=== PATIENT | female | born 1930 | race Caucasian/White ===

== ENCOUNTER 2016-09-07 20:57 | Emergency (ER) | payer BC ==
[2016-09-07 21:02] VITALS: TEMP 97.7
[2016-09-07 21:43] VITALS: RESP 18
--- NOTE | 2016-09-07 22:01 | EDPHY ---
HPI/HX/ROS/PE/MDM Narrative: Chief complaint: High blood pressure HPI: 86-year-old female with past medical history of hypertension. She had an episode last month where she noted that her blood pressure medication dosage had gotten mixed up and she has been taking 20 mg twice a day. She has since gone back to her 10 mg twice a day. She and her partner have been checking her blood pressure daily and noted a couple days where he has been high. Last Saturday was 200 systolic. She has been suffering from upper respiratory cold type symptoms with a nonproductive cough. No fevers or chills. No chest pain shortness of breath. She has not had any headache. No nausea or vomiting. No urinary symptoms. She otherwise feels in her normal state of health. Today that her blood pressure was noted to be 200 over 100. They called their physician's office and instructed to increase the dose of amlodipine and recheck. They did this to her blood pressure remained high so they are now presenting for evaluation. She otherwise feels well and is without any other complaint. ROS: 10 point Review of Systems is negative except as noted in the HPI. Physical exam: Gen: Awake, Alert, No Distress HEENT: Nose: no rhinorrhea Eyes: PERRLA, EOMI Mouth: Moist mucosa Neck: Supple, no JVD Chest: nontender, lungs clear to auscultation Heart: S1, S2 normal, no murmur Abd: Soft, non-tender, no guarding Back: no CVA tenderness, no midline tenderness Ext: no edema, non-tender Skin: no rash Neuro: CN II-XII intact, Sensation grossly intact, Strength 5/5 in bilateral upper and lower extremities ED Course: Patient with episode of high blood pressure home. Right now her blood pressure is 159/96. She has a heart rate of 78, respiratory saturations are 96 with a respiratory rate of 12. She is without any complaint at this time. There is no symptoms to suggest end-organ damage or malignant hypertension at this time. Will discharged home with follow-up with her primary care physician next week. Lungs are clear on exam. She does have a cough which she is afebrile and does not have any symptoms to suggest a pneumonia at this time. She would like to go home and agrees with the plan. General Time Seen by Provider: 09/07/16 21:37 Initial Vital Signs: Initial Vital Signs Temperature (C) 36.5 C 09/07/16 20:58 Heart Rate 73 09/07/16 20:58 Respiratory Rate 16 09/07/16 20:58 Blood Pressure 189/102 H 09/07/16 20:58 O2 Sat (%) 92 09/07/16 20:58 O2 Delivery Mode Room Air Allergies/Adverse Reactions: Iodinated Contrast Media - Oral and [IV Dye, Iodine Containing] Allergy (Severe , Verified 01/01/10 05:47) WATERY EYES, NOSE Home Medications: Medication Instructions Recorded Aspirin EC [Aspirin EC 81 mg (*)] 81 mg PO HS 11/29/15 Atorvastatin Calcium [Lipitor 10 10 mg PO HS 11/29/15 mg (*)] Benzonatate [Tessalon Pearles] 100 mg PO TID PRN 11/29/15 Gabapentin [Neurontin 100 MG (*)] 200 mg PO HS 11/29/15 Guaifenesin/Codeine Phosphate 5 ml PO Q4 PRN 11/29/15 [Guaifen-Codeine 100-10 mg/5 ml] Herbals/Supplements -Info Only 1 ea PO DAILY 11/29/15 Lisinopril [Zestril 10 mg (*)] 10 mg PO DAILY 11/29/15 Oseltamivir Phosphate [Tamiflu 30 mg PO BIDMEAL #6 dose 12/02/15 Oral Suspension] Departure - Departure Disposition: Home, Routine, Self-Care Clinical Impression: Viral upper respiratory infection, Hypertension Condition: Good Instructions: Hypertension (ED), Viral Syndrome (ED) Additional Instructions: Follow up with your primary care doctor in next week. Return to the emergency department for worsening cough, shortness of breath, headache, nausea, vomiting, chest pain, or uncontrolled high blood pressure. Take your usual medications as prescribed. Referrals: Bo Decker MD [Primary Care Provider] - As per Instructions
[2016-09-07 22:19] VITALS: BP 159/97; PULSE 78; O2SAT 96
== END 2016-09-07 22:16 | disposition home or self-care (01) ==
DX: I10 Essential (primary) hypertension (principal); J06.9 Acute upper respiratory infection, unspecified; Z79.82 Long term (current) use of aspirin

== ENCOUNTER 2016-10-02 04:49 | Emergency (ER) | payer BC ==
--- NOTE | 2016-10-02 04:58 | EDPHY ---
HPI/HX/ROS/PE/MDM Narrative: Chief complaint: Syncope HPI: 86-year-old female states that she took a laxative just prior to going to bed. She woke up this morning with the need to go to the bathroom. She went and had a large bowel movement. Immediately after that she felt lightheaded, was unable to stand up. She slid to the ground. She did not hit her head. No loss of consciousness. She did feel very weak at that time. Did not have any chest pain. No palpitations. Has not been recently on well. No fevers or chills. No increasing urination or burning with urination. Her partner called 911. Currently she is complaining of feeling a bit thirsty, otherwise no complaints. ROS: 10 point Review of Systems is negative except as noted in the HPI. Physical exam: Gen: Awake, Alert, No Distress HEENT: Nose: no rhinorrhea Eyes: PERRLA, EOMI Mouth: Moist mucosa Neck: Supple, no JVD Chest: nontender, lungs clear to auscultation Heart: S1, S2 normal, no murmur Abd: Soft, non-tender, no guarding Back: no CVA tenderness, no midline tenderness Ext: no edema, non-tender Skin: no rash Neuro: CN II-XII intact, Sensation grossly intact, Strength 5/5 in bilateral upper and lower extremities ED Course: 86-year-old female that I actually saw earlier this month with hypertension. Tonight she had a near syncopal episode immediately after having a large bowel motion. She did not have any pain. Did not have a complete loss of consciousness. No shortness of breath. She is feeling improved now. Will check ECG, labs, encourage oral hydration and reassess. EC Sinus Rhythm, normal intervals. Normal axis. No ST or T wave changes. Impression: normal ECG. CBC is normal Metabolic panel is normal. Troponin is normal. I had an extensive discussion about the likely cause of her syncope being vasovagal. Given that this occurred after had she had a very large bowel movement on the toilet I think that this is likely. She has not have any findings suggestive of a rib media. Her ECG is normal. Troponin is normal. She has otherwise well-appearing. She does not want to stay in hospital for further evaluation. Plan will be for discharge with follow-up with her primary care physician - Data Points Laboratory Results: Laboratory Results 10/02/16 05:00 10/02/16 05:45 10/02/16 10/02/16 05:45 05:00 WBC 6.33 10^3/uL (3.80-9.50) RBC 4.90 10^6/uL (4.18-5.33) Hgb 14.9 g/dL (12.6-16.3) Hct 44.1 % (38.0-47.0) MCV 90.0 fL (81.5-99.8) MCH 30.4 pg (27.9-34.1) MCHC 33.8 g/dL (32.4-36.7) RDW 13.7 % (11.5-15.2) Plt Count 204 10^3/uL (150-400) MPV 8.8 fL (8.7-11.7) Neut % (Auto) 62.9 % (39.3-74.2) Lymph % (Auto) 26.7 % (15.0-45.0) [place] % (Auto) 6.2 % (4.5-13.0) Eos % (Auto) 2.8 % (0.6-7.6) Baso % (Auto) 0.5 % (0.3-1.7) Nucleat RBC Rel Count 0.0 % (0.0-0.2) Absolute Neuts (auto) 3.98 10^3/uL (1.70-6.50) Absolute Lymphs (auto) 1.69 10^3/uL (1.00-3.00) Absolute Monos (auto) 0.39 10^3/uL (0.30-0.80) Absolute Eos (auto) 0.18 10^3/uL (0.03-0.40) Absolute Basos (auto) 0.03 10^3/uL (0.02-0.10) Absolute Nucleated RBC 0.00 10^3/uL (0-0.01) Immature Gran % 0.9 % (0.0-1.1) Immature Gran # 0.06 10^3/uL (0.00-0.10) Sodium 137 mEq/L REJ (134-144) Potassium 4.0 mEq/L REJ (3.5-5.2) Chloride 103 mEq/L REJ (97-110) Carbon Dioxide 25 mEq/l REJ (22-31) Anion Gap 9 mEq/L REJ (8-16) BUN 13 mg/dL REJ (7-23) Creatinine 0.7 mg/dL REJ (0.6-1.0) Estimated GFR > 60 REJ Glucose 91 mg/dL REJ (70-100) Calcium 9.1 mg/dL REJ (8.5-10.4) Troponin I < 0.012 ng/mL REJ (0-0.034) Specimen Hemolysis REJ Medications Given: Discontinued Medications Sodium Chloride (Ns) 500 mls @ 0 mls/hr IV ONCE ONE PRN Reason: Wide Open Stop: 10/02/16 05:01 Last Admin: 10/02/16 05:14 Dose: 500 mls General Initial Vital Signs: Initial Vital Signs Heart Rate 68 10/02/16 04:53 Respiratory Rate 18 10/02/16 04:53 Blood Pressure 164/84 H 10/02/16 04:53 O2 Sat (%) 96 10/02/16 04:53 O2 Delivery Mode Room Air O2 (L/minute) 36.4 Allergies/Adverse Reactions: Iodinated Contrast Media - Oral and [IV Dye, Iodine Containing] Allergy (Severe , Verified 01/01/10 05:47) WATERY EYES, NOSE Home Medications: Medication Instructions Recorded Aspirin EC [Aspirin EC 81 mg (*)] 81 mg PO HS 11/29/15 Atorvastatin Calcium [Lipitor 10 10 mg PO HS 11/29/15 mg (*)] Benzonatate [Tessalon Pearles] 100 mg PO TID PRN 11/29/15 Gabapentin [Neurontin 100 MG (*)] 200 mg PO HS 11/29/15 Guaifenesin/Codeine Phosphate 5 ml PO Q4 PRN 11/29/15 [Guaifen-Codeine 100-10 mg/5 ml] Herbals/Supplements -Info Only 1 ea PO DAILY 11/29/15 Lisinopril [Zestril 10 mg (*)] 10 mg PO DAILY 11/29/15 Oseltamivir Phosphate [Tamiflu 30 mg PO BIDMEAL #6 dose 12/02/15 Oral Suspension] Departure - Departure Disposition: Home, Routine, Self-Care Clinical Impression: Vasovagal episode, Vasovagal near-syncope Condition: Good Instructions: Near Syncope (ED) Additional Instructions: Make sure to drink plenty of fluids. Avoid taking laxative prior to going to bed. Follow up with your primary care physician in 2-3 days for re-evaluation. Return to the emergency department for increasing fainting, chest pain, palpitations, shortness of breath, or any other concerns. Referrals: Bo Decker MD [Primary Care Provider] - As per Instructions
[2016-10-02] MEDS ORDERED: NS 500 ML IV ONE (05:00)
--- NOTE | 2016-10-02 05:10 | CPEKG ---
Heart Rate: 66 RR Interval: 909 P-R Interval: 216 QRSD Interval: 84 QT Interval: 400 QTC Interval: 420 P [place]: 71 QRS [place]: 72 T Wave [place]: 72 EKG Severity - NORMAL ECG - EKG Impression: SINUS RHYTHM Electronically Signed By: Max Clarke 02-Oct-2016 07:08:14
[2016-10-02 05:15] LABS: % IMMATURE GRANULYOCYTES 0.9 % (0.0-1.1); ABSOLUTE IMMATURE GRANULOCYTES 0.06 10^3/uL (0.00-0.10); ADD DIFF? NO; ADD MORPH? NO; ADD SCAN? NO; ATYPICAL LYMPHOCYTE FLAG 0 (0-99); FRAGMENT RBC FLAG 0 (0-99); HEMATOCRIT 44.1 % (38.0-47.0); HEMOGLOBIN 14.9 g/dL (12.6-16.3); LEFT SHIFT FLG 0 (0-99); LIPEMIA HEMOLYSIS FLAG 90 (0-99); MEAN CELL HEMOGLOBIN 30.4 pg (27.9-34.1); MEAN CELL HEMOGLOBIN CONCENTR. 33.8 g/dL (32.4-36.7); MEAN PLATELET VOLUME 8.8 fL (8.7-11.7); PLATELET CLUMPS FLAG 0 (0-99); PLATELET COUNT 204 10^3/uL (150-400); RED CELL DISTRIBUTION WIDTH 13.7 % (11.5-15.2)
[2016-10-02 05:58] VITALS: O2SAT 97
[2016-10-02 06:11] LABS: ANION GAP 9 mEq/L (8-16); CALCIUM 9.1 mg/dL (8.5-10.4); CARBON DIOXIDE 25 mEq/l (22-31); CHLORIDE 103 mEq/L (97-110); CREATININE 0.7 mg/dL (0.6-1.0); GLOMERULAR FILTRATION RATE > 60; GLUCOSE 91 mg/dL (70-100); SODIUM 137 mEq/L (134-144)
[2016-10-02 06:22] LABS: TROPONIN I < 0.012 ng/mL (0-0.034)
[2016-10-02 07:12] VITALS: BP 167/97; PULSE 76; RESP 16; TEMP 97.5
== END 2016-10-02 07:12 | disposition home or self-care (01) ==
LOC: EDUNIT#
DX: R55 Syncope and collapse (principal); Z79.82 Long term (current) use of aspirin

== ENCOUNTER 2016-10-03 12:43 | Inpatient (IN) | payer OTHER, BC ==
--- NOTE | 2016-10-03 12:52 | EDPHY ---
H & P Stated Complaint: Abd pain since last corky;sent by PCP for eval bowel problem; bloody stool Time Seen by Provider: 10/03/16 12:46 HPI/ROS: CHIEF COMPLAINT: Abdominal pain, bloody bowel movement HISTORY OF PRESENT ILLNESS: The patient presents to the ED with complaints of acute abdominal pain, back pain and a bloody bowel movement. The patient was seen in the ED 2 days ago after she had a syncopal episode while at home after using a laxative. The patient developed pain and a bloody bowel movement earlier today. She was seen at her primary care provider's office and sent to the ED for further evaluation. The patient reports a contrast to IV iodine. The patient denies a prior history of diverticulitis or significant bowel disease. The patient reports her pain is moderate in nature. It is located primarily in the left lower quadrant. REVIEW OF SYSTEMS: A comprehensive 10 point review of systems is otherwise negative aside from elements mentioned in the history of present illness. Source: Patient Exam Limitations: No limitations - Personal History Current Tetanus Diphtheria and Acellular Pertussis (TDAP): Yes Tetanus Vaccine Date: unknown - Medical/Surgical History Hx Asthma: No Hx Chronic Respiratory Disease: No Hx Diabetes: No Hx Cardiac Disease: Yes Hx Renal Disease: No Hx Cirrhosis: No Hx Alcoholism: No Hx HIV/AIDS: No Hx Splenectomy or Spleen Trauma: No Other PMH: PMHx: HTN, CAD, pericarditis. PSHx: cardiac stent, bilateral hip replacement - Social History Smoking Status: Never smoked - Physical Exam Exam: General Appearance: Alert, no distress Eyes: Pupils equal and round no pallor or injection ENT, Mouth: Mucous membranes moist Respiratory: There are no retractions, lungs are clear to auscultation Cardiovascular: Regular rate and rhythm Gastrointestinal: Tenderness to palpation in the left lower quadrant, normal bowel sounds Neurological: A&O, normal motor function, normal sensory exam, normal cranial nerves Skin: Warm and dry, no rashes Musculoskeletal: Neck is supple nontender Extremities: symmetrical, full range of motion Constitutional: Initial Vital Signs Temperature (C) 36.8 C 10/03/16 12:45 Heart Rate 86 10/03/16 12:45 Respiratory Rate 18 10/03/16 12:45 Blood Pressure 178/103 H 10/03/16 12:45 O2 Sat (%) 97 10/03/16 12:45 Allergies/Adverse Reactions: Iodinated Contrast Media - Oral and [IV Dye, Iodine Containing] Allergy (Severe , Verified 10/03/16 12:47) WATERY EYES, NOSE Home Medications: Medication Instructions Recorded Aspirin EC [Aspirin EC 81 mg (*)] 81 mg PO HS 11/29/15 Atorvastatin Calcium [Lipitor 10 10 mg PO HS 11/29/15 mg (*)] Benzonatate [Tessalon Pearles] 100 mg PO TID PRN 11/29/15 Gabapentin [Neurontin 100 MG (*)] 200 mg PO HS 11/29/15 Guaifenesin/Codeine Phosphate 5 ml PO Q4 PRN 11/29/15 [Guaifen-Codeine 100-10 mg/5 ml] Herbals/Supplements -Info Only 1 ea PO DAILY 11/29/15 Lisinopril [Zestril 10 mg (*)] 10 mg PO DAILY 11/29/15 Oseltamivir Phosphate [Tamiflu 30 mg PO BIDMEAL #6 dose 12/02/15 Oral Suspension] Medical Decision Making - Diagnostics Imaging: CT Scan of the abdomen and pelvis without contrast Indication: Left flank pain. Technique: Multidetector helical CT imaging was performed from the kidneys to the urinary bladder without contrast. Dose reduction techniques were utilized. Comparison: CT abdomen and pelvis dated December 19, 2006 and pelvic ultrasound dated November 08, 2008. Findings: Minimal stranding and edema are present along the minimally thickened descending colon. A few scattered diverticula are present throughout the descending and sigmoid colon. Trace free fluid resides in the low pelvis. No pneumoperitoneum, abscess, lymphadenopathy or mass. The well circumscribed unilocular right ovarian cyst has increased in size since 2006 and 2008. The cyst now measures 10 x 7 x 6.5 cm (previously 8.0 x 6.6 x 5.5 cm). A new small cyst in the left ovary measuring 3.5 x 3.0 x 3.0 cm has developed since 2006. No discernible mass or internal septations on the noncontrast imaging. Numerous well circumscribed fluid attenuation cysts scattered throughout the liver are unchanged. The spleen, pancreas, gallbladder, adrenal glands, and kidneys are normal. No nephrolithiasis or hydroureteronephrosis. Urinary bladder is normal. Anteverted uterus contains a large round heterogeneous mass, presumably representing a uterine leiomyoma measuring 6.5 x 6.0 cm (previously 6.0 x 5.5 cm). No bone lesions. A subtle old compression deformity involving superior endplate of L1 is new since 2006. The abdominal aorta is normal caliber with extensive calcified mural plaque. Impression: 1. Minimal colitis, possibly diverticulitis, of the descending colon. No evidence of perforation or abscess. 2. Increasing in size bilateral ovarian cysts. The largest on the right measures 10 cm. Recommend follow up with VASCULAR SONOGRAPHER. 3. Increased size of intrauterine leiomyoma. 4. Old minimal compression deformity at L1. ED Course/Re-evaluation: The patient presents to the ED with complaints of acute abdominal pain and bloody diarrhea. The patient is noted to be quite tender in her left lower quadrant. She is hemodynamically stable. She was taken for a stat CT scan of the abdomen pelvis which demonstrates changes consistent with diverticulitis in the descending colon. The patient had an IV established. She received 2 L of normal saline. She received IV narcotic pain medications. She received IV Levaquin and Flagyl. The patient had multiple examinations in the ED by myself. At 3:00 p.m. she continues to have fairly significant tenderness.. Given her age and ongoing tenderness I do feel she should be admitted to the hospital for observation this evening. Consultation is made with Dr. Espana at 3:00 p.m.. He will admit the patient to a medical-surgical bed this evening. The patient is noted to have mild hyponatremia on her initial labs this is likely secondary to hypovolemia as she appears dehydrated. Differential Diagnosis: Differential diagnosis considered includes diverticulitis, ischemic colitis, pancreatitis, bowel obstruction, perforation - Data Points Laboratory Results: Laboratory Results 10/03/16 13:15 10/03/16 13:15 10/03/16 10/03/16 13:15 13:00 WBC 6.43 10^3/uL (3.80-9.50) RBC 4.89 10^6/uL (4.18-5.33) Hgb 15.2 g/dL (12.6-16.3) Hct 42.8 % (38.0-47.0) MCV 87.5 fL (81.5-99.8) MCH 31.1 pg (27.9-34.1) MCHC 35.5 g/dL (32.4-36.7) RDW 13.3 % (11.5-15.2) Plt Count 196 10^3/uL (150-400) MPV 8.5 L fL (8.7-11.7) Neut % (Auto) 79.0 H % (39.3-74.2) Lymph % (Auto) 14.0 L % (15.0-45.0) [place] % (Auto) 5.8 % (4.5-13.0) Eos % (Auto) 0.6 % (0.6-7.6) Baso % (Auto) 0.3 % (0.3-1.7) Nucleat RBC Rel Count 0.0 % (0.0-0.2) Absolute Neuts (auto) 5.08 10^3/uL (1.70-6.50) Absolute Lymphs (auto) 0.90 L 10^3/uL (1.00-3.00) Absolute Monos (auto) 0.37 10^3/uL (0.30-0.80) Absolute Eos (auto) 0.04 10^3/uL (0.03-0.40) Absolute Basos (auto) 0.02 10^3/uL (0.02-0.10) Absolute Nucleated RBC 0.00 10^3/uL (0-0.01) Immature Gran % 0.3 % (0.0-1.1) Immature Gran # 0.02 10^3/uL (0.00-0.10) Sodium 129 L mEq/L (134-144) Potassium 4.1 mEq/L (3.5-5.2) Chloride 95 L mEq/L (97-110) Carbon Dioxide 24 mEq/l (22-31) Anion Gap 10 mEq/L (8-16) BUN 9 mg/dL (7-23) Creatinine 0.6 mg/dL (0.6-1.0) Estimated GFR > 60 Glucose 101 H mg/dL (70-100) Calcium 8.9 mg/dL (8.5-10.4) Total Bilirubin 1.3 mg/dL (0.1-1.4) Conjugated Bilirubin 0.3 mg/dL (0.0-0.5) Unconjugated Bilirubin 1.0 mg/dL (0.0-1.1) AST 24 IU/L (14-46) ALT 31 IU/L (9-52) Alkaline Phosphatase 44 IU/L (38-126) Total Protein 6.8 g/dL (6.3-8.2) Albumin 3.7 g/dL (3.5-5.0) Lipase 73.0 IU/L (23-300) Urine Color PALE YELLOW Urine Appearance CLEAR Urine pH 7.0 (5.0-7.5) Ur Specific [place] 1.005 (1.002-1.030) Urine Protein NEGATIVE (NEGATIVE) Urine Ketones NEGATIVE (NEGATIVE) Urine Blood 1+ H (NEGATIVE) Urine Nitrate NEGATIVE (NEGATIVE) Urine Bilirubin NEGATIVE (NEGATIVE) Urine Urobilinogen NEGATIVE EU (0.2-1.0) Ur Leukocyte Esterase NEGATIVE (NEGATIVE) Urine RBC 1-3 /hpf (0-3) Urine WBC 1-3 /hpf (0-3) Ur Epithelial Cells NONE SEEN /lpf (NONE-1+) Ur Culture Indicated? NOT INDICATED (NI) Urine Glucose NEGATIVE (NEGATIVE) Departure - Departure Disposition: [facility] Clinical Impression: Diverticulitis Condition: Good
[2016-10-03 13:25] LABS: % IMMATURE GRANULYOCYTES 0.3 % (0.0-1.1); ABSOLUTE IMMATURE GRANULOCYTES 0.02 10^3/uL (0.00-0.10); ADD DIFF? NO; ADD MORPH? NO; ADD SCAN? NO; ATYPICAL LYMPHOCYTE FLAG 0 (0-99); FRAGMENT RBC FLAG 0 (0-99); HEMATOCRIT 42.8 % (38.0-47.0); HEMOGLOBIN 15.2 g/dL (12.6-16.3); LEFT SHIFT FLG 0 (0-99); LIPEMIA HEMOLYSIS FLAG 90 (0-99); MEAN CELL HEMOGLOBIN 31.1 pg (27.9-34.1); MEAN CELL HEMOGLOBIN CONCENTR. 35.5 g/dL (32.4-36.7); MEAN CELL VOLUME 87.5 fL (81.5-99.8); MEAN PLATELET VOLUME 8.5 fL (8.7-11.7); PLATELET CLUMPS FLAG 0 (0-99); PLATELET COUNT 196 10^3/uL (150-400); RED BLOOD CELL COUNT 4.89 10^6/uL (4.18-5.33); RED CELL DISTRIBUTION WIDTH 13.3 % (11.5-15.2)
[2016-10-03 13:50] LABS: ALANINE AMINOTRANSFERASE 31 IU/L (9-52); ALBUMIN 3.7 g/dL (3.5-5.0); ALKALINE PHOSPHATASE 44 IU/L (38-126); ANION GAP 10 mEq/L (8-16); ASPARTATE AMINOTRANSFERASE 24 IU/L (14-46); BILIRUBIN,TOTAL 1.3 mg/dL (0.1-1.4); BILIRUBIN-CONJUGATED 0.3 mg/dL (0.0-0.5); CALCIUM 8.9 mg/dL (8.5-10.4); CARBON DIOXIDE 24 mEq/l (22-31); CHLORIDE 95 mEq/L (97-110); CREATININE 0.6 mg/dL (0.6-1.0); GLOMERULAR FILTRATION RATE > 60; GLUCOSE 101 mg/dL (70-100); POTASSIUM 4.1 mEq/L (3.5-5.2); SODIUM 129 mEq/L (134-144); TOTAL PROTEIN 6.8 g/dL (6.3-8.2)
[2016-10-03 14:30] LABS: COLOR PALE YELLOW; LEUKOCYTE ESTERASE,URINE NEGATIVE (NEGATIVE); NITRITE,URINE NEGATIVE (NEGATIVE)
--- NOTE | 2016-10-03 14:39 | CT ---
CT Scan of the abdomen and pelvis without contrast Indication: Left flank pain. Technique: Multidetector helical CT imaging was performed from the kidneys to the urinary bladder wi thout contrast. Dose reduction techniques were utilized. Comparison: CT abdomen and pelvis dated December 19, 2006 and pelvic ultrasound dated November 08, 2008. Findings: Minimal stranding and edema are present along the minimally thickened descending colon. A f ew scattered diverticula are present throughout the descending and sigmoid colon. Trace free fluid re sides in the low pelvis. No pneumoperitoneum, abscess, lymphadenopathy or mass. The well circumscribed unilocular right ovarian cyst has increased in size since 2006 and 2008. The c yst now measures 10 x 7 x 6.5 cm (previously 8.0 x 6.6 x 5.5 cm). A new small cyst in the left ovary measuring 3.5 x 3.0 x 3.0 cm has developed since 2006. No discernible mass or internal septations on the noncontrast imaging. Numerous well circumscribed fluid attenuation cysts scattered throughout the liver are unchanged. The spleen, pancreas, gallbladder, adrenal glands, and kidneys are normal. No nephrolithiasis or hydrour eteronephrosis. Urinary bladder is normal. Anteverted uterus contains a large round heterogeneous mass, presumably representing a uterine leiomy tee measuring 6.5 x 6.0 cm (previously 6.0 x 5.5 cm). No bone lesions. A subtle old compression deformity involving superior endplate of L1 is new since 21 03. The abdominal aorta is normal caliber with extensive calcified mural plaque. Impression: 1. Minimal colitis, possibly diverticulitis, of the descending colon. No evidence of perforation or a bscess. 2. Increasing in size bilateral ovarian cysts. The largest on the right measures 10 cm. Recommend fol low up with MANAGER MBA. 3. Increased size of intrauterine leiomyoma. 4. Old minimal compression deformity at L1. Comment: Case was discussed with Dr. Chris Seaman. Attention: This CT examination is specifically designed to evaluate patients who are clinically susp ected of having acute obstructive uropathy. This examination does not use radiographic contrast, and as such, provides only a limited evaluation of the abdomen, pelvis and retroperitoneum. If there i s further clinical suspicion for pathological conditions other than obstructive uropathy, a complete CT evaluation of the abdomen and pelvis utilizing intravenous, oral, and rectal contrast should be co nsidered.
[2016-10-03] MEDS ORDERED: NS 1,000 ML IV ONE ×2 (14:57)
[2016-10-03] MEDS ORDERED: HYDROmorphONE/DILAUDID 1 MG/ML SYR IVP ONE (14:57)
[2016-10-03] MEDS ORDERED: PROMETHAZINE HCL 25 MG TAB PO PRN (15:19)
[2016-10-03] MEDS ORDERED: ACETAMINOPHEN 325 MG TAB PO PRN (15:19)
[2016-10-03] MEDS ORDERED: PROMETHAZINE HCL 25 MG/ML INJ IVP PRN (15:19)
[2016-10-03] MEDS ORDERED: ONDANSETRON DISINTEGRATING 4 MG TAB PO PRN (15:19)
--- NOTE | 2016-10-03 15:50 | PDGENHP ---
History and Physical - Chief Complaint Acute abdominal pain - History of Present Illness PCP: Dr. Allen Casing Tier: Dr. Muse HPI: 86-year-old female presenting with acute abdominal pain characterized as moderate, located in the right hemidiaphragm and back with associated hematochezia and onset of symptoms on the day of this presentation. Duration has been persistent thereafter and have been partially alleviated by IV Dilaudid received in the emergency department. The patient reports that the symptoms were precipitated by nausea and vomiting on the day prior to this presentation. She also experienced a syncopal episode after a very large bowel movement which was precipitated by laxative use. The patient denies ever experiencing these kind of symptoms before. She reports that she has otherwise been attempting to take all of her home medications but some of them may have been vomited up on the evening prior to this presentation. History Information - Allergies/Home Medication List Allergies/Adverse Reactions: Iodinated Contrast Media - Oral and [IV Dye, Iodine Containing] Allergy (Severe , Verified 10/03/16 12:47) WATERY EYES, NOSE Home Medications: Aspirin EC [Aspirin EC 81 mg (*)] 81 mg PO HS 11/29/15 [Last Taken 10/02/16] Atorvastatin Calcium [Lipitor 10 mg (*)] 10 mg PO HS 11/29/15 [Last Taken ] Gabapentin [Neurontin 100 MG (*)] 200 mg PO HS 11/29/15 [Last Taken 10/02/16] Herbals/Supplements -Info Only 1 ea PO DAILY 11/29/15 [Last Taken Unknown] Lisinopril [Zestril 10 mg (*)] 10 mg PO BID 11/29/15 [Last Taken 10/03/16] I have personally reviewed and updated: family history, medical history, social history, surgical history - Past Medical History coronary artery disease (Status post cardiac stents in early 1999), hypertension Additional medical history: Pericarditis. 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 - Surgical History Additional surgical history: Bilateral hip surgery, cardiac stents - Family History Additional family history: Reports no recent sick family contacts, parents are both - Social History Smoking Status: Never smoked Alcohol Use: None Drug Use: None Additional social history: Active at baseline, lives with partner Review of Systems ROS: 10pt was reviewed & negative except for what was stated in HPI & below Constitutional: Reports: chills, malaise Gastrointestinal: Reports: vomitting, abdominal pain, nausea, other ( Hematochezia) Physical Exam Temp Pulse Resp BP Pulse Ox 36.9 C 80 16 149/79 H 95 10/03/16 15:31 10/03/16 15:31 10/03/16 15:31 10/03/16 15:31 10/03/16 15:31 Constitutional: appears nourished, uncomfortable, No not in pain, No chronically ill appearing, No obese Eyes: PERRL, anicteric sclera, EOMI Ears, Nose, Mouth, Throat: moist mucous membranes, hearing normal, ears appear normal, no oral mucosal ulcers Cardiovascular: systolic murmur (2/6 systolic murmur at the sternum and apex), No irregularly irregular, No tachycardia, No edema Respiratory: no respiratory distress, no rales or rhonchi, clear to auscultation Gastrointestinal: normoactive bowel sounds, no palpable masses, tenderness ( Right hemidiaphragm), guarding (Voluntary), No distension Skin: warm, normal color, no rashes or abrasions, no fluctuance, no induration, No mottled Neurologic: AAOx3, sensation intact bilaterally, No weakness Psychiatric: interacting appropriately, not anxious, not encephalopathic, thought process linear Lab Data & Imaging Review 10/03/16 13:15 10/03/16 13:15 WBC 6.43 10^3/uL (3.80-9.50) 10/03/16 13:15 RBC 4.89 10^6/uL (4.18-5.33) 10/03/16 13:15 Hgb 15.2 g/dL (12.6-16.3) 10/03/16 13:15 Hct 42.8 % (38.0-47.0) 10/03/16 13:15 MCV 87.5 fL (81.5-99.8) 10/03/16 13:15 MCH 31.1 pg (27.9-34.1) 10/03/16 13:15 MCHC 35.5 g/dL (32.4-36.7) 10/03/16 13:15 RDW 13.3 % (11.5-15.2) 10/03/16 13:15 Plt Count 196 10^3/uL (150-400) 10/03/16 13:15 MPV 8.5 fL (8.7-11.7) L 10/03/16 13:15 Neut % (Auto) 79.0 % (39.3-74.2) H 10/03/16 13:15 Lymph % (Auto) 14.0 % (15.0-45.0) L 10/03/16 13:15 [place] % (Auto) 5.8 % (4.5-13.0) 10/03/16 13:15 Eos % (Auto) 0.6 % (0.6-7.6) 10/03/16 13:15 Baso % (Auto) 0.3 % (0.3-1.7) 10/03/16 13:15 Nucleat RBC Rel Count 0.0 % (0.0-0.2) 10/03/16 13:15 Absolute Neuts (auto) 5.08 10^3/uL (1.70-6.50) 10/03/16 13:15 Absolute Lymphs (auto) 0.90 10^3/uL (1.00-3.00) L 10/03/16 13:15 Absolute Monos (auto) 0.37 10^3/uL (0.30-0.80) 10/03/16 13:15 Absolute Eos (auto) 0.04 10^3/uL (0.03-0.40) 10/03/16 13:15 Absolute Basos (auto) 0.02 10^3/uL (0.02-0.10) 10/03/16 13:15 Absolute Nucleated RBC 0.00 10^3/uL (0-0.01) 10/03/16 13:15 Immature Gran % 0.3 % (0.0-1.1) 10/03/16 13:15 Immature Gran # 0.02 10^3/uL (0.00-0.10) 10/03/16 13:15 Sodium 129 mEq/L (134-144) L 10/03/16 13:15 Potassium 4.1 mEq/L (3.5-5.2) 10/03/16 13:15 Chloride 95 mEq/L (97-110) L 10/03/16 13:15 Carbon Dioxide 24 mEq/l (22-31) 10/03/16 13:15 Anion Gap 10 mEq/L (8-16) 10/03/16 13:15 BUN 9 mg/dL (7-23) 10/03/16 13:15 Creatinine 0.6 mg/dL (0.6-1.0) 10/03/16 13:15 Estimated GFR > 60 10/03/16 13:15 Glucose 101 mg/dL (70-100) H 10/03/16 13:15 Calcium 8.9 mg/dL (8.5-10.4) 10/03/16 13:15 Total Bilirubin 1.3 mg/dL (0.1-1.4) 10/03/16 13:15 Conjugated Bilirubin 0.3 mg/dL (0.0-0.5) 10/03/16 13:15 Unconjugated Bilirubin 1.0 mg/dL (0.0-1.1) 10/03/16 13:15 AST 24 IU/L (14-46) 10/03/16 13:15 ALT 31 IU/L (9-52) 10/03/16 13:15 Alkaline Phosphatase 44 IU/L (38-126) 10/03/16 13:15 Total Protein 6.8 g/dL (6.3-8.2) 10/03/16 13:15 Albumin 3.7 g/dL (3.5-5.0) 10/03/16 13:15 Lipase 73.0 IU/L (23-300) 10/03/16 13:15 Urine Color PALE YELLOW 10/03/16 13:00 Urine Appearance CLEAR 10/03/16 13:00 Urine pH 7.0 (5.0-7.5) 10/03/16 13:00 Ur Specific [place] 1.005 (1.002-1.030) 10/03/16 13:00 Urine Protein NEGATIVE (NEGATIVE) 10/03/16 13:00 Urine Ketones NEGATIVE (NEGATIVE) 10/03/16 13:00 Urine Blood 1+ (NEGATIVE) H 10/03/16 13:00 Urine Nitrate NEGATIVE (NEGATIVE) 10/03/16 13:00 Urine Bilirubin NEGATIVE (NEGATIVE) 10/03/16 13:00 Urine Urobilinogen NEGATIVE EU (0.2-1.0) 10/03/16 13:00 Ur Leukocyte Esterase NEGATIVE (NEGATIVE) 10/03/16 13:00 Urine RBC 1-3 /hpf (0-3) 10/03/16 13:00 Urine WBC 1-3 /hpf (0-3) 10/03/16 13:00 Ur Epithelial Cells NONE SEEN /lpf (NONE-1+) 10/03/16 13:00 Ur Culture Indicated? NOT INDICATED (NI) 10/03/16 13:00 Urine Glucose NEGATIVE (NEGATIVE) 10/03/16 13:00 Visualized and Interpreted EKG results: Yes EKG Interpretation: Positive for: other (Normal sinus rhythm with Q-waves inferiorly) Assessment & Plan Assessment: 78-year-old female presenting with acute abdominal pain secondary to suspected acute diverticulitis Plan: 1. Suspected acute diverticulitis. New problem this provider, further workup indicated. Evidence by CT of the abdomen without IV contrast demonstrating colitis and possible diverticulitis in the descending colon without any associated abscess. Symptoms include abdominal pain, hematochezia, nausea and vomiting. -send stool culture to delineate whether viral versus bacterial if in fact this is actually colitis -discussed with Dr. Seaman, he has reported to me that the patient is receiving IV levofloxacin and IV Flagyl -will continue the patient on IV ciprofloxacin and IV Flagyl given her nausea and vomiting, transition to oral when she is able to tolerate pills reliably -bowel rest with clear liquid diet -continue on IV fluids notably normal saline 150 mL/hour -pain management with oral and IV meds, antiemetics as needed -if patient's symptoms worsen or her severity of illness escalates, we will reimage her abdomen with IV contrast and premedicating with Benadryl and Tylenol given that her iodine allergy in the past did not sound severe and patient was unable to recall the exact reaction 2. Hyponatremia. Chronic, reviewed outside records including 12/02/[address] Garcia which she characterizes patient's hyponatremia secondary to SIADH, Lasix discontinued -monitor serum sodium level while receiving IV normal saline 3. Hypertension. Chronic, continue lisinopril given his systolic blood pressures greater than 170 4. Chronic coronary artery disease. Remote history of cardiac stents, will hold aspirin given her hematochezia 5. Suspected cognitive impairment. Patient's partner reports that the patient has been experiencing progressive, chronic cognitive impairment -patient is safe for self care at home 6. Ovarian cyst. Chronic, this has been mentioned to the patient in the past, her abdominal CT demonstrates leiomyoma with increasing cysts eyes to 10 cm -recommended that the patient follow up with outpatient wire dropper although given her age she will most likely not be undergoing surgery for this issue Diet. Clear liquid diet Prophylaxis. Moderate risk patient, pharmacologic contraindicated given her hematochezia, SCDs Code. Do not resuscitate per patient, her partner is her MPOA Disposition. Anticipated discharge is 10/04/2016, pending further workup and stabilization of conditions outlined above.
[2016-10-03] MEDS: NS 1,000 ML IV SCH (17:07)
[2016-10-03] MEDS: LISINOPRIL 10 MG TAB PO SCH (19:40)
[2016-10-03] MEDS: GABAPENTIN 100 MG CAP PO SCH (19:41)
[2016-10-03] MEDS: ATORVASTATIN CALCIUM 10 MG TAB PO SCH (19:41)
[2016-10-04 04:56] LABS: % IMMATURE GRANULYOCYTES 0.4 % (0.0-1.1); ABSOLUTE IMMATURE GRANULOCYTES 0.02 10^3/uL (0.00-0.10); ADD DIFF? NO; ADD MORPH? NO; ADD SCAN? NO; ATYPICAL LYMPHOCYTE FLAG 10 (0-99); FRAGMENT RBC FLAG 0 (0-99); HEMATOCRIT 38.8 % (38.0-47.0); HEMOGLOBIN 13.3 g/dL (12.6-16.3); LEFT SHIFT FLG 0 (0-99); LIPEMIA HEMOLYSIS FLAG 90 (0-99); MEAN CELL HEMOGLOBIN 30.8 pg (27.9-34.1); MEAN CELL HEMOGLOBIN CONCENTR. 34.3 g/dL (32.4-36.7); MEAN CELL VOLUME 89.8 fL (81.5-99.8); MEAN PLATELET VOLUME 8.7 fL (8.7-11.7); PLATELET CLUMPS FLAG 0 (0-99); PLATELET COUNT 158 10^3/uL (150-400); RED BLOOD CELL COUNT 4.32 10^6/uL (4.18-5.33); RED CELL DISTRIBUTION WIDTH 13.5 % (11.5-15.2)
[2016-10-04 05:17] LABS: ANION GAP 7 mEq/L (8-16); CARBON DIOXIDE 23 mEq/l (22-31); CHLORIDE 105 mEq/L (97-110); CREATININE 0.6 mg/dL (0.6-1.0); GLOMERULAR FILTRATION RATE > 60; GLUCOSE 93 mg/dL (70-100); POTASSIUM 3.8 mEq/L (3.5-5.2); SODIUM 135 mEq/L (134-144)
[2016-10-04] MEDS ORDERED: Herbals/Supplements -Info Only PO SCH (09:00)
[2016-10-04] MEDS: LISINOPRIL 10 MG TAB PO SCH ×2 (09:19→20:26)
[2016-10-04] MEDS: oxyCODONE IR 5 MG TAB PO PRN (09:19)
[2016-10-04] MEDS: CIPROFLOXACIN 400 MG/DEXTROSE 200 ML IV SCH ×2 (09:19→20:26)
--- NOTE | 2016-10-04 12:57 | HOSPPROG ---
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 # hld - lipitor # htn - lisinopril # cad s/p distant stents # hyponatremia - resolved # DNR # lovenox ## CT reviewed chart reviewed dispo - inpatient; needs > 2 midnights for treatment of the above Subjective: no BM; more fiesty than yesterday; abd pain better but not resolved ; not taking much PO Objective: Vital Signs Temp Pulse Resp BP Pulse Ox 36.6 C 80 16 140/76 H 95 10/04/16 12:00 10/04/16 12:00 10/04/16 12:00 10/04/16 12:00 10/04/16 12:00 Laboratory Results 10/04/16 04:39 10/04/16 04:39 10/03/16 10/04/16 10/05/16 05:59 05:59 05:59 Intake Total 2950 Output Total 1200 Balance 1750 - Physical Exam Constitutional: no apparent distress, appears nourished Cardiovascular: regular rate and rhythym, no murmur, rub, or gallop Respiratory: no respiratory distress, no rales or rhonchi, clear to auscultation Gastrointestinal: other (mildly distended, mild TTP L side, no flank pain, no guarding or rebound) ICD10 Worksheet Patient Problems: Problems Problem Status Diagnosed Dehydration Acute Diverticulitis Acute Elevated d-dimer Acute Hypoxemia Acute
[2016-10-04] MEDS: NS 1,000 ML IV SCH (13:02)
[2016-10-04] MEDS: ONDANSETRON 4 MG/2 ML VIAL IVP PRN ×2 (16:34→20:39)
[2016-10-04] MEDS ORDERED: TEMAZEPAM 15 MG CAP PO PRN (19:06)
[2016-10-04] MEDS: ATORVASTATIN CALCIUM 10 MG TAB PO SCH (20:26)
[2016-10-04] MEDS: ASPIRIN EC 81 MG TAB PO SCH (20:26)
[2016-10-04] MEDS: GABAPENTIN 100 MG CAP PO SCH (20:26)
[2016-10-05] MEDS: NS 1,000 ML IV SCH (03:37)
[2016-10-05 05:29] LABS: % IMMATURE GRANULYOCYTES 0.7 % (0.0-1.1); ABSOLUTE IMMATURE GRANULOCYTES 0.03 10^3/uL (0.00-0.10); ADD DIFF? NO; ADD MORPH? NO; ADD SCAN? NO; ATYPICAL LYMPHOCYTE FLAG 20 (0-99); FRAGMENT RBC FLAG 0 (0-99); HEMATOCRIT 39.7 % (38.0-47.0); HEMOGLOBIN 13.8 g/dL (12.6-16.3); LEFT SHIFT FLG 0 (0-99); LIPEMIA HEMOLYSIS FLAG 90 (0-99); MEAN CELL HEMOGLOBIN 30.6 pg (27.9-34.1); MEAN CELL HEMOGLOBIN CONCENTR. 34.8 g/dL (32.4-36.7); MEAN PLATELET VOLUME 8.8 fL (8.7-11.7); PLATELET CLUMPS FLAG 70 (0-99); PLATELET COUNT 186 10^3/uL (150-400); RED BLOOD CELL COUNT 4.51 10^6/uL (4.18-5.33); RED CELL DISTRIBUTION WIDTH 13.6 % (11.5-15.2)
[2016-10-05 05:31] LABS: ALANINE AMINOTRANSFERASE 30 IU/L (9-52); ALBUMIN 3.1 g/dL (3.5-5.0); ALKALINE PHOSPHATASE 38 IU/L (38-126); ANION GAP 8 mEq/L (8-16); ASPARTATE AMINOTRANSFERASE 24 IU/L (14-46); BILIRUBIN,TOTAL 1.1 mg/dL (0.1-1.4); CALCIUM 8.3 mg/dL (8.5-10.4); CARBON DIOXIDE 22 mEq/l (22-31); CHLORIDE 105 mEq/L (97-110); CREATININE 0.7 mg/dL (0.6-1.0); GLOMERULAR FILTRATION RATE > 60; GLUCOSE 91 mg/dL (70-100); POTASSIUM 3.9 mEq/L (3.5-5.2); SODIUM 135 mEq/L (134-144); TOTAL PROTEIN 6.1 g/dL (6.3-8.2)
[2016-10-05] MEDS: CIPROFLOXACIN 400 MG/DEXTROSE 200 ML IV SCH ×2 (08:45→20:48)
[2016-10-05] MEDS: ENOXAPARIN 30 MG/0.3 ML SYR SC SCH (08:46)
[2016-10-05] MEDS: LISINOPRIL 10 MG TAB PO SCH ×2 (08:46→20:49)
[2016-10-05] MEDS ORDERED: POLYETHYLENE GLYCOL 3350 17 GM PKT PO PRN (11:19)
--- NOTE | 2016-10-05 13:24 | DX ---
Abdomen, Two view. History: Abdominal pain. Possible constipation. Evaluate for obstruction. Comparison: CT 03 October 2016. Findings: Air-filled loops of small and large bowel are visualized with no significant dilatation. Th ere are a few air-fluid levels scattered throughout the small bowel. No evidence for free intraperito tamika air. Degenerative change is seen in the lumbar spine. Vascular calcifications are seen indicatin g atherosclerotic disease. Postsurgical changes are seen in both hips. There is lucency around the ac etabular component of the left hip which could represent loosening. Degenerative change is seen in th e symphysis pubis. Impression: 1. Probable ileus. 2. Other chronic findings as above.
--- NOTE | 2016-10-05 13:58 | HOSPPROG ---
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 # hld - lipitor # htn - lisinopril # cad s/p distant stents # hyponatremia - resolved # DNR # lovenox ## Subjective: Ongoing flatus, no bowel movement, ongoing mild abdominal tenderness Objective: Vital Signs Temp Pulse Resp BP Pulse Ox 36.6 C 76 18 153/89 H 93 10/05/16 11:30 10/05/16 11:30 10/05/16 11:30 10/05/16 11:30 10/05/16 11:30 Laboratory Results 10/05/16 04:25 10/05/16 04:25 10/04/16 10/05/16 10/06/16 05:59 05:59 05:59 Intake Total 2689 Output Total 3600 Balance -911 Vitals reviewed Pleasant, no acute distress Regular rate and rhythm, no murmurs rubs or gallops No respiratory distress, lungs clear to auscultation bilaterally, no wheezes or rales Abdomen soft, mildly distended, mildly diffusely tender to palpation, no masses appreciated - Time Spent With Patient Time Spent with Patient: greater than 35 minutes Time Spent with Patient: Greater than 35 minutes spent on this patients care, greater than 50% of time spent counseling, educating, and coordinating care regarding the above mentioned plan. ICD10 Worksheet Patient Problems: Problems Problem Status Diagnosed Dehydration Acute Diverticulitis Acute Elevated d-dimer Acute Hypoxemia Acute
[2016-10-05] MEDS: GABAPENTIN 100 MG CAP PO SCH (20:48)
[2016-10-05] MEDS: ASPIRIN EC 81 MG TAB PO SCH (20:49)
[2016-10-05] MEDS: ATORVASTATIN CALCIUM 10 MG TAB PO SCH (20:49)
[2016-10-05 21:12] VITALS: RESP 16
[2016-10-06 05:20] LABS: % IMMATURE GRANULYOCYTES 0.5 % (0.0-1.1); ABSOLUTE IMMATURE GRANULOCYTES 0.02 10^3/uL (0.00-0.10); ADD DIFF? NO; ADD MORPH? NO; ADD SCAN? NO; ATYPICAL LYMPHOCYTE FLAG 10 (0-99); FRAGMENT RBC FLAG 0 (0-99); HEMATOCRIT 36.6 % (38.0-47.0); HEMOGLOBIN 12.7 g/dL (12.6-16.3); LEFT SHIFT FLG 0 (0-99); LIPEMIA HEMOLYSIS FLAG 90 (0-99); MEAN CELL HEMOGLOBIN 30.7 pg (27.9-34.1); MEAN CELL HEMOGLOBIN CONCENTR. 34.7 g/dL (32.4-36.7); MEAN CELL VOLUME 88.4 fL (81.5-99.8); MEAN PLATELET VOLUME 8.8 fL (8.7-11.7); PLATELET CLUMPS FLAG 20 (0-99); PLATELET COUNT 190 10^3/uL (150-400); RED BLOOD CELL COUNT 4.14 10^6/uL (4.18-5.33); RED CELL DISTRIBUTION WIDTH 13.4 % (11.5-15.2)
[2016-10-06 05:40] LABS: ANION GAP 7 mEq/L (8-16); CALCIUM 8.6 mg/dL (8.5-10.4); CARBON DIOXIDE 24 mEq/l (22-31); CHLORIDE 104 mEq/L (97-110); CREATININE 0.6 mg/dL (0.6-1.0); GLOMERULAR FILTRATION RATE > 60; GLUCOSE 95 mg/dL (70-100); POTASSIUM 3.6 mEq/L (3.5-5.2); SODIUM 135 mEq/L (134-144)
[2016-10-06] MEDS: oxyCODONE IR 5 MG TAB PO PRN (08:13)
[2016-10-06] MEDS: CIPROFLOXACIN 400 MG/DEXTROSE 200 ML IV SCH (08:18)
[2016-10-06] MEDS: LISINOPRIL 10 MG TAB PO SCH (08:18)
[2016-10-06] MEDS: ENOXAPARIN 30 MG/0.3 ML SYR SC SCH ×2 (08:18→09:11)
[2016-10-06 08:23] VITALS: TEMP 98.1
[2016-10-06] MEDS ORDERED: metroNIDAZOLE 250 MG TAB PO SCH (12:00)
[2016-10-06 13:58] VITALS: BP 142/80; PULSE 70; O2SAT 95
--- NOTE | 2016-10-06 14:35 | GDS ---
[f rep st] DISCHARGE SUMMARY DIAGNOSES: 1. Diverticulitis. 2. Mild ileus. 3. History of coronary artery disease. 4. Hypertension. 5. Chronic hyponatremia. PROCEDURES: Abdominal and pelvic CT scan: Minimal colitis, possible diverticulitis in the descendin g colon, increasing size of ovarian cyst, the largest on the right measuring 10 cm. HOSPITAL COURSE: The patient is an 86-year-old woman with a history significant for heart disease, o therwise relatively healthy, who comes in with abdominal pain. CT scan with done with the above find ings. She was placed on Cipro and Flagyl IV and admitted to the hospital for IV hydration. She had initially a mild ileus. However, the day prior to discharge she did have a bowel movement and contin ues to pass gas. She was able to tolerate a light meal and is feeling well without any abdominal annie n. Of note, she was found to have an increasing size of the intrauterine leiomyoma and a large ovari an cyst with recommendations for BUSINESS BANKING REPRESENTATIVE followup. DISCHARGE CONDITION: Good. PHYSICAL EXAMINATION: VITAL SIGNS: She has been afebrile. Heart rate 82, blood pressure anywhere f rom 160 systolic. GENERAL: She is alert and oriented. HEART: Regular. LUNGS: Clear. ABDOMEN: Benign. DISCHARGE MEDICATIONS: Please see discharge medication form. In addition to her home medications, she will be given Cipro and Flagyl to complete 6 more days. FOLLOWUP INSTRUCTIONS: She should follow up with Dr. Allen next week. PENDING STUDIES: She did have evidence of an increasing leiomyoma in her uterus, as well as an enlar ging ovarian cyst on CT scan. Recommendations are for BUSINESS BANKING REPRESENTATIVE followup of this. I will defer that, give n the patient's age and relatively asymptomatic state. I will defer that to her primary care provide r. TIME SPENT: Total time spent with the patient on day of discharge and coordination of care is 35 min [facility]. /[id number]/MODL
[2016-10-06] MEDS ORDERED: CIPROFLOXACIN 250 MG TAB PO SCH (20:00)
== END 2016-10-06 14:45 | disposition home or self-care (01) | DRG 392 ==
LOC: F3E 16:13 → OBSVTOIN 10-04 14:34
PROVIDERS: ADMIT Internal Medicine; ATTEND Internal Medicine
DX: K57.30 Diverticulosis of large intestine without perforation or abscess without bleeding (principal); K56.7 Ileus, unspecified; E87.0 Hyperosmolality and hypernatremia; I10 Essential (primary) hypertension; I25.10 Atherosclerotic heart disease of native coronary artery without angina pectoris; N83.201 Unspecified ovarian cyst, right side; N83.202 Unspecified ovarian cyst, left side; D25.9 Leiomyoma of uterus, unspecified; E78.5 Hyperlipidemia, unspecified; Z66 Do not resuscitate; Z95.5 Presence of coronary angioplasty implant and graft
CPT/HCPCS: 97116-GP; 97161-GP; 97165-GO; G0378; G8978-GP-CI; G8979-GP-CH; G8979-GP-CI; G8980-GP-CI; G8987-GO-CI; G8988-GO-CH; G8989-GO-CI; J0744; J1170; J1650; J1956; J2405; J2550

== ENCOUNTER 2016-10-08 16:28 | Emergency (ER) | payer OTHER, BC ==
[2016-10-08] MEDS ORDERED: OXYCODONE/APAP 5/325 TAB PO ONE (16:51)
--- NOTE | 2016-10-08 16:51 | EDPHY ---
H & P Time Seen by Provider: 10/08/16 16:36 HPI/ROS: CHIEF COMPLAINT: Right-sided back pain HISTORY OF PRESENT ILLNESS: 86-year-old female presents with right-sided back pain. She was admitted on 10/03/2016 for acute diverticulitis. She was discharged home 2 days ago on oral antibiotics. During that admission, she also had right-sided back pain, which was alleviated with the OxyContin that she received while hospitalized. She was feeling better yesterday and this morning. Gradually increasing right sided back pain starting this afternoon. The pain is moderate to severe and increases with movement and bending. She is taking Tylenol with minimal relief in pain. No abdominal pain, vomiting or fever. REVIEW OF SYSTEMS: Constitutional: No fever, no chills Eyes: No visual changes ENT: No sore throat Respiratory: No cough, no shortness of breath Cardiac: No chest pain Gastrointestinal: no vomiting, no abdominal pain Genitourinary: No hematuria, no dysuria Musculoskeletal: No leg pain or swelling Skin: No rash Neurological: No headache, no weakness Psychiatric: No depression Past Medical/Surgical History: Diverticulitis Hypertension Coronary artery disease Social History: No recent alcohol Smoking Status: Never smoked Physical Exam: General Appearance: Alert, eyes closed Eyes: Pupils equal and round, no conjunctival pallor or injection ENT, Mouth: Mucous membranes moist Neck: Normal inspection Respiratory: Lungs are clear to auscultation Cardiovascular: Regular rate and rhythm Gastrointestinal: Abdomen is soft and nontender Back: Right paraspinous tenderness in the lumbar area, no midline tenderness or rash Neurological: A&O, nonfocal exam Skin: Warm and dry, no rash Extremities: Nontender, no pedal edema Psychiatric: Mood and affect normal Constitutional: Initial Vital Signs Temperature (C) 36.7 C 10/08/16 16:31 Heart Rate 84 10/08/16 16:31 Respiratory Rate 18 10/08/16 16:31 Blood Pressure 133/101 H 10/08/16 16:31 O2 Sat (%) 95 10/08/16 16:31 O2 Delivery Mode Room Air O2 (L/minute) 2 Allergies/Adverse Reactions: Iodinated Contrast Media - Oral and [IV Dye, Iodine Containing] Allergy (Severe , Verified 10/08/16 16:29) WATERY EYES, NOSE Home Medications: Medication Instructions Recorded Aspirin EC [Aspirin EC 81 mg (*)] 81 mg PO HS 11/29/15 Atorvastatin Calcium [Lipitor 10 10 mg PO HS 11/29/15 mg (*)] Gabapentin [Neurontin 100 MG (*)] 200 mg PO HS 11/29/15 Herbals/Supplements -Info Only 1 ea PO DAILY 11/29/15 Lisinopril [Zestril 10 mg (*)] 10 mg PO BID 11/29/15 Ciprofloxacin [Cipro] 250 mg PO BID@1000,2000 #12 tab 10/06/16 metroNIDAZOLE [Flagyl 250 mg (*)] 500 mg PO TID #18 tab 10/06/16 Ondansetron Odt [Zofran Odt 4 mg 4 mg PO Q4 PRN #6 tab 10/08/16 (*)] oxyCODONE/APAP 5/325 [Percocet 1 tab PO Q4 PRN #15 tab 10/08/16 5/325 (*)] Medical Decision Making ED Course/Re-evaluation: This patient presents with persistent right-sided lumbar pain after recent admission. I reviewed the CT scan during her admission and there is no right- sided lumbar pathology to explain her pain. I do not feel that the right ovarian cyst is causing her pain, given that she has no pelvic/abdominal tenderness. There is no evidence of worsening infection; abdomen is soft and NT , she is afebrile and white blood cell count is normal. Percocet 1 tablet orally given. She feels much better after the Percocet and would like to go home. Able to walk to the BR with minimal back discomfort. Most likely musculoskeletal in etiology. Differential Diagnosis: Differential diagnosis for back pain includes muscular pain, herniated disc, epidural abscess, discitis, spine fracture, intra-abdominal causes and urinary tract infection. - Data Points Laboratory Results: Laboratory Results 10/08/16 16:45 10/08/16 16:45 Medications Given: Discontinued Medications Sodium Chloride (Ns) 1,000 mls @ 0 mls/hr IV ONCE ONE PRN Reason: Wide Open Stop: 10/08/16 17:19 Last Admin: 10/08/16 17:35 Dose: 1,000 mls Ondansetron HCl (Zofran Odt 4 Mg Prepack#2) 1 btl TAKEHOME EDNOW ONE Stop: 10/08/16 18:29 Last Admin: 10/08/16 18:32 Dose: 1 btl Ondansetron HCl (Zofran) 4 mg IVP EDNOW ONE Stop: 10/08/16 18:30 Last Admin: 10/08/16 18:29 Dose: 4 mg Oxycodone/Acetaminophen (Percocet 5/325) 1 tab PO EDNOW ONE Stop: 10/08/16 16:52 Last Admin: 10/08/16 16:57 Dose: 1 tab Oxycodone/Acetaminophen (Percocet 5/325mg Prepack#4) 1 btl TAKEHOME EDNOW ONE Stop: 10/08/16 18:29 Last Admin: 10/08/16 18:32 Dose: 1 btl Departure - Departure Disposition: Home, Routine, Self-Care Clinical Impression: Back pain Qualifiers: Qualifier Code: (M54.5) Low back pain Condition: Good Instructions: Oxycodone/Acetaminophen (By mouth), Ondansetron (By mouth), Low Back Strain (ED) Additional Instructions: Take Percocet 1/2 tablet every 4 hours as needed for pain. Take Zofran 1 tablet sublingually every 6 hours as needed for nausea. Take a stool softener (such as Docusate Sodium or Colace) while taking pain medications as these can make you constipated. Referrals: Leslie Allen MD [Primary Care Provider] - As per Instructions Prescriptions: oxyCODONE/APAP 5/325 [Percocet 5/325 (*)] 1 tab PO Q4 PRN #15 tab PRN Reason: pain Ondansetron Odt [Zofran Odt 4 mg (*)] 4 mg PO Q4 PRN #6 tab PRN Reason: Nausea
[2016-10-08] MEDS ORDERED: NS 1,000 ML IV ONE (17:18)
[2016-10-08 17:22] LABS: % IMMATURE GRANULYOCYTES 0.7 % (0.0-1.1); ABSOLUTE IMMATURE GRANULOCYTES 0.03 10^3/uL (0.00-0.10); ADD DIFF? NO; ADD MORPH? NO; ADD SCAN? NO; ATYPICAL LYMPHOCYTE FLAG 30 (0-99); FRAGMENT RBC FLAG 0 (0-99); HEMATOCRIT 40.9 % (38.0-47.0); HEMOGLOBIN 14.8 g/dL (12.6-16.3); LEFT SHIFT FLG 0 (0-99); LIPEMIA HEMOLYSIS FLAG 90 (0-99); MEAN CELL HEMOGLOBIN 31.2 pg (27.9-34.1); MEAN CELL HEMOGLOBIN CONCENTR. 36.2 g/dL (32.4-36.7); MEAN CELL VOLUME 86.1 fL (81.5-99.8); MEAN PLATELET VOLUME 8.7 fL (8.7-11.7); PLATELET CLUMPS FLAG 30 (0-99); PLATELET COUNT 272 10^3/uL (150-400); RED BLOOD CELL COUNT 4.75 10^6/uL (4.18-5.33); RED CELL DISTRIBUTION WIDTH 13.1 % (11.5-15.2)
[2016-10-08 17:33] LABS: ALANINE AMINOTRANSFERASE 46 IU/L (9-52); ALBUMIN 4.1 g/dL (3.5-5.0); ALKALINE PHOSPHATASE 42 IU/L (38-126); ANION GAP 13 mEq/L (8-16); ASPARTATE AMINOTRANSFERASE 55 IU/L (14-46); BILIRUBIN,TOTAL 0.7 mg/dL (0.1-1.4); BILIRUBIN-CONJUGATED 0.5 mg/dL (0.0-0.5); BILIRUBIN-UNCONJUGATED 0.2 mg/dL (0.0-1.1); CALCIUM 9.6 mg/dL (8.5-10.4); CARBON DIOXIDE 21 mEq/l (22-31); CHLORIDE 97 mEq/L (97-110); CREATININE 0.7 mg/dL (0.6-1.0); GLOMERULAR FILTRATION RATE > 60; GLUCOSE 135 mg/dL (70-100); POTASSIUM 3.2 mEq/L (3.5-5.2); SODIUM 131 mEq/L (134-144); TOTAL PROTEIN 6.9 g/dL (6.3-8.2)
[2016-10-08 18:11] VITALS: RESP 14; O2SAT 96
[2016-10-08] MEDS ORDERED: ONDANSETRON 4 MG/2 ML VIAL ONE (18:26)
[2016-10-08] MEDS ORDERED: OXYCODONE/APAP 5/325MG PREPACK#4 BTL TAKEHOME ONE (18:28)
[2016-10-08] MEDS ORDERED: ONDANSETRON 4MG PREPACK#2 BTL TAKEHOME ONE (18:28)
[2016-10-08] MEDS ORDERED: ONDANSETRON 4 MG/2 ML VIAL IVP ONE (18:29)
[2016-10-08 18:43] VITALS: BP 179/83; PULSE 70; TEMP 98.2
== END 2016-10-08 18:49 | disposition home or self-care (01) ==
DX: M54.5 Low back pain (principal); I10 Essential (primary) hypertension; I25.10 Atherosclerotic heart disease of native coronary artery without angina pectoris; Z79.82 Long term (current) use of aspirin
CPT/HCPCS: 96361; 96374; 99284; J2405

== ENCOUNTER → 2017-08-28 | Outpatient (CLI) | payer BC | LOC: FIMAGING 10:05 | PROVIDERS: ATTEND Internal Medicine Cardiovascular Disease | DX: M79.89 Other specified soft tissue disorders (principal); M79.661 Pain in right lower leg; M79.662 Pain in left lower leg ==